=== PATIENT | male | born 1990 | race Caucasian/White ===

== ENCOUNTER 2018-12-03 13:55 | Emergency (ER) | payer MEDICAID ==
[2018-12-03] MEDS ORDERED: LORazepam 2 MG/ML VIAL IM STA (14:14)
--- NOTE | 2018-12-03 14:16 | ED Physician Documentation ---
History of Present Illness - Stated complaint Stated Complaint: HEADACHE - Chief complaint Chief Complaint: Neuro - History obtained from History obtained from: Patient - History of Present Illness Timing: Today (This is a 28-year-old gentleman with chronic anxiety, he was over an ultrasound, as his is . They turned the MRI machine on. He feels like he is always been very sensitive to magnets. He can feel magnetic galeano. While he was over there and return to the MRI on he started to feel strange with a occipital headache, bilateral upper and lower extremity tingling and heaviness and feeling like he could feel stuff in his veins. He says this also may be related to an episode of PTSD that started when he was 11 and having an MRI and they would not let him take a stuffed animal in there.) Review of Systems Constitutional: denies: Fever, Chills Cardiac: denies: Chest pain / pressure, Palpitations Respiratory: denies: Dyspnea, Cough GI: denies: Abdominal Pain, Nausea, Vomiting, Constipation, Diarrhea PD PAST MEDICAL HISTORY - Allergies Allergies/Adverse Reactions: Allergies Allergy/AdvReac Type Severity Reaction Status Date / Time No Known Drug Allergies Allergy Verified 12/03/18 14:01 PD ED PE NORMAL - Vitals Vital signs reviewed: Yes - General General: Alert and oriented X 3, No acute distress - HEENT HEENT: PERRL, EOMI, Ears normal, Pharynx benign - Neck Neck: Supple, no meningeal sign, No bony TTP - Cardiac Cardiac: RRR, No murmur - Respiratory Respiratory: No respiratory distress, Clear bilaterally - Abdomen Abdomen: Normal bowel sounds, Soft, Non tender - Back Back: No CVA TTP, No spinal TTP - Derm Derm: Normal color, Warm and dry - Extremities Extremities: No edema, No calf tenderness / cord - Neuro Neuro: Alert and oriented X 3, Normal speech Results - Vitals Vitals: Vital Signs - 24 hr 12/03/18 13:58 Temperature 36.3 C L Heart Rate 74 Respiratory 18 Rate Blood Pressure 134/100 H O2 Saturation 99 Oxygen O2 Source Room air - Rads (name of study) CT Head Radiology: EMP read contemporaneously (normal) PD MEDICAL DECISION MAKING - ED course ED course: 28-year-old gentleman with an acute headache that by history is likely due to combination of PTSD and anxiety knee was feeling better after Ativan is still quite anxious and requested imaging of his head which I discussed with him. I did not necessarily think it was indicated but he felt like he needed to have everything ruled out so he could feel better, the CT was normal. Departure - Departure Disposition: 01 Home, Self Care Clinical Impression: Anxiety, PTSD (post-traumatic stress disorder) Headache Qualifiers: Headache type: tension-type Headache chronicity pattern: acute headache Intractability: not intractable Qualified Code(s): G44.209 - Tension-type headache, unspecified, not intractable Condition: Good Record reviewed to determine appropriate education?: Yes Instructions: ED Cephalgia Unspecified Comments: Follow-up with [facility] at [phone] to schedule psychiatric care and counseling.
--- NOTE | 2018-12-03 15:46 | CT Report ---
Reason: headache Procedure Date: 12/03/2018 Accession Number: [id number] / [id number] Procedure: CT - HEAD WO CPT Code: FULL RESULT: EXAM: CT HEAD EXAM DATE: 12/03/2018 03:35 PM. CLINICAL HISTORY: 28-year-old male. 88Headache. COMPARISON: None. TECHNIQUE: Multiaxial CT images were obtained from the foramen magnum to the vertex. Reformats: Sagittal and coronal. IV contrast: None. In accordance with CT protocol optimization, one or more of the following dose reduction techniques were utilized for this exam: automated exposure control, adjustment of mA and/or KV based on patient size, or use of iterative reconstructive technique. FINDINGS: Parenchyma: No intraparenchymal hemorrhage. No evidence of mass, midline shift, or CT findings of infarction. [place]-white differentiation is distinct. Extraaxial Spaces: Normal for age. No subdural or epidural collections identified. Ventricles: Normal in size and position. Sinuses and Orbits: Imaged paranasal sinuses, orbits, and mastoids show no significant abnormality. Bones: No evidence of fracture or calvarial defect. Other: None. IMPRESSION: No CT evidence of acute intracranial abnormality, specifically no CT evidence of acute infarct, intracranial hemorrhage, mass effect, midline shift, or hydrocephalus. RADIA
[2018-12-03 15:59] VITALS: BP 129/95
== END 2018-12-03 16:03 | disposition home or self-care (01) ==
LOC: ED 13:55
DX: G44.209 Tension-type headache, unspecified, not intractable (principal); F41.9 Anxiety disorder, unspecified; F43.10 Post-traumatic stress disorder, unspecified
CPT/HCPCS: 70450; 96372; 99284; J2060

== ENCOUNTER 2019-02-01 14:58 | Outpatient (CLI) | payer MEDICAID | END 2019-02-01 14:59 | disposition critical access hospital (66) | LOC: EMS 14:58 | PROVIDERS: ATTEND Surgery | DX: R55 Syncope and collapse (principal) | CPT/HCPCS: A0425; A0429 ==

== ENCOUNTER 2019-02-01 15:17 | Emergency (ER) | payer MEDICAID ==
[2019-02-01] MEDS ORDERED: SODIUM CHLORIDE 0.9% 1,000 ML IV ONE (15:41)
--- NOTE | 2019-02-01 15:51 | ED Physician Documentation ---
PD HPI SYNCOPE - Stated complaint Stated Complaint: SYNCOPE - Chief complaint Chief Complaint: General - History obtained from History obtained from: Patient, EMS - History of Present Illness Witnessed: Witnessed Timing - onset: Today Duration: Seconds Preceding symptoms: Vision changes, Light headed Associated symptoms: Other (drooling) Injury occurred: None Similar symptoms before: Has not had sx before Recently seen: Not recently seen - Additional information Additional information: 28-year-old male with a history of anxiety and panic attacks has had a syncopal episode today. He was in an argument with his girlfriend and he was continuously yelling when he suddenly collapsed. The girlfriend acknowledges a brief syncopal and no injury and recovery without seizure. The patient recalls that he had been hitting himself in the head on the right side and has pain there with a throbbing nature. He is concerned because he has a headache and has had his fist to his head yesterday. The patient states that this morning the couple woke up late and he walked to [facility] and [facility] and still had not had anything to drink today at 3PM. Review of Systems Constitutional: denies: Fever, Chills, Myalgias Eyes: denies: Decreased vision Ears: denies: Ear pain Nose: denies: Rhinorrhea / runny nose, Congestion Throat: denies: Sore throat Cardiac: denies: Chest pain / pressure, Palpitations Respiratory: denies: Dyspnea, Cough GI: denies: Abdominal Pain, Nausea, Vomiting : denies: Dysuria, Frequency Skin: denies: Rash Musculoskeletal: reports: Extremity pain, Joint pain. denies: Neck pain, Back pain Neurologic: reports: Syncope. denies: Generalized weakness, Focal weakness, Numbness, Seizure, Confused, Altered mental status PD PAST MEDICAL HISTORY - Past Surgical History Past Surgical History: No - Allergies Allergies/Adverse Reactions: Allergies Allergy/AdvReac Type Severity Reaction Status Date / Time cucumbers Allergy Unknown Uncoded 02/01/19 15:38 - Social History Does the pt smoke?: No Smoking Status: Former smoker Does the pt have substance abuse?: No - POLST Patient has POLST: No PD ED PE NORMAL - Vitals Vital signs reviewed: Yes (hypertensive diastolic ) - General General: Alert and oriented X 3, No acute distress, Well developed/nourished - HEENT HEENT: Atraumatic, PERRL, EOMI, Ears normal, Moist mucous membranes, Pharynx benign, Dentition benign - Neck Neck: Supple, no meningeal sign, No bony TTP - Cardiac Cardiac: RRR, No murmur - Respiratory Respiratory: No respiratory distress, Clear bilaterally - Abdomen Abdomen: Soft, Non tender - Back Back: No CVA TTP, No spinal TTP - Derm Derm: Normal color, Warm and dry, No rash - Extremities Extremities: No deformity, No edema, Other (There is tenderness to the right hand over the distal 5th metacarpal. ) - Neuro Neuro: Alert and oriented X 3, pump installation and servicer 2-12 intact, No motor deficit, No sensory deficit, Normal speech Eye Opening: Spontaneous Motor: Obeys Commands Verbal: Oriented GCS Score: 15 - Psych Psych: Normal mood, Normal affect Results - Vitals Vitals: Vital Signs - 24 hr 02/01/19 15:29 Temperature 36.7 C Heart Rate 74 Respiratory 16 Rate Blood Pressure 120/92 H O2 Saturation 97 Oxygen O2 Source Room air - EKG (time done) 1525 Rate: Rate (enter#) (75) Rhythm: NSR QRS: LVH Ischemia: Non specific changes Compare to prior EKG: Old EKG unavailable Computer interpretation: Agree with computer - Labs Labs: Laboratory Tests 02/01/19 02/01/19 02/01/19 15:45 15:45 15:45 WBC 10.1 RBC 4.83 Hgb 14.4 Hct 42.5 MCV 88.0 MCH 29.8 MCHC 33.9 RDW 12.3 Plt Count 247 MPV 9.3 Neut # (Auto) 5.9 Lymph # (Auto) 2.2 [place] # (Auto) 1.0 Eos # (Auto) 0.9 H Baso # (Auto) 0.1 Absolute Nucleated RBC 0.00 Nucleated RBC % 0.0 Sodium 141 Potassium 3.8 Chloride 106 Carbon Dioxide 26 Anion Gap 9.0 BUN 15 Creatinine 0.9 Estimated GFR (MDRD) 100 Glucose 97 Calcium 9.2 Total Bilirubin 0.8 AST 25 ALT 35 Alkaline Phosphatase 62 Troponin I High Sens 4.6 Total Protein 7.1 Albumin 4.0 Globulin 3.1 Albumin/Globulin Ratio 1.3 Lipase 39 Procedures - IVC sono (time) 1545 Bedside IVC sono: IVC measures (cm) (1.05), IVC collapsed c insp (cm) (complete), Dehydration (est 1-2 liter deficit) PD MEDICAL DECISION MAKING - ED course Complexity details: reviewed old records, reviewed results, re-evaluated patient, considered differential, d/w patient, d/w family ED course: 28-year-old male with a syncopal episode while yelling continuously is found to be dehydrated on interrogation of the inferior vena cava. Is unexplained for his dehydration he has not had anything to drink this morning and since last night and he walked for a while prior to the incident. He does acknowledge a feeling of clearing his head from lightheadedness with a deep breath. Departure - Departure Disposition: 01 Home, Self Care Clinical Impression: Dehydration Condition: Stable Instructions: ED Dehydration Follow-Up: TERRY Waters [Provider Group]
[2019-02-01 15:52] LABS: BASOPHILS # (AUTO) 0.1 10^3/uL (0.0-0.1); BASOPHILS % (AUTO) 0.6 %; EOSINOPHILS # (AUTO) 0.9 10^3/uL (0.0-0.7); EOSINOPHILS % (AUTO) 8.5 %; HGB - HEMOGLOBIN 14.4 g/dL (14.0-18.0); LYMPHOCYTES # (AUTO) 2.2 10^3/uL (1.5-3.5); LYMPHOCYTES % (AUTO) 21.7 %; MEAN CORPUSCULAR HEMOGLOBIN 29.8 pg (27.0-31.0); MEAN CORPUSCULAR HGB CONC 33.9 g/dL (32.0-36.0); MEAN PLATELET VOLUME 9.3 fL (7.4-11.4); MONOCYTES % (AUTO) 10.1 %; NEUTROPHILS # (AUTO) 5.9 10^3/uL (1.5-6.6); NEUTROPHILS % (AUTO) 58.5 %; PLT - PLATELET COUNT 247 10^3/uL (130-450); RED BLOOD COUNT 4.83 10^6/uL (4.70-6.10); RED CELL DISTRIBUTION WIDTH 12.3 % (12.0-15.0); WHITE BLOOD COUNT 10.1 x10^3/uL (4.8-10.8)
[2019-02-01 16:06] LABS: ALBUMIN/GLOBULIN RATIO 1.3 (1.0-2.2); BILIRUBIN,TOTAL 0.8 mg/dL (0.2-1.0); CALCIUM 9.2 mg/dL (8.5-10.3); CREATININE 0.9 mg/dL (0.6-1.2); TOTAL PROTEIN 7.1 g/dL (6.7-8.2)
--- NOTE | 2019-02-01 16:38 | XRAY Report ---
Reason: distal 5th pain contusion Procedure Date: 02/01/2019 Accession Number: [id number] / [id number] Procedure: XR - Hand 3 View RT CPT Code: FULL RESULT: EXAM: RIGHT HAND RADIOGRAPHY EXAM DATE: 02/01/2019 03:53 PM. CLINICAL HISTORY: Distal 5th pain contusion. COMPARISON: None. TECHNIQUE: 3 views. FINDINGS: Bones: Normal. No fractures or bone lesions. Joints: Normal. No subluxations. Soft Tissues: Normal. No soft tissue swelling. IMPRESSION: No fracture RADIA
[2019-02-01 16:42] VITALS: BP 146/102
== END 2019-02-01 17:15 | disposition home or self-care (01) ==
LOC: EDUNIT# → ED 15:17
DX: E86.0 Dehydration (principal); Z87.891 Personal history of nicotine dependence
CPT/HCPCS: 36415; 80053; 83690; 84484; 85025; 93005; 96360; 99283

== ENCOUNTER 2019-05-17 10:57 | Outpatient (CLI) | payer MEDICAID | END 2019-05-17 10:58 | disposition critical access hospital (66) | LOC: EMS 10:57 | PROVIDERS: ATTEND Surgery | DX: R25.2 Cramp and spasm (principal); M54.5 Low back pain | CPT/HCPCS: A0425; A0429 ==

== ENCOUNTER 2019-05-17 11:16 | Emergency (ER) | payer MEDICAID ==
[2019-05-17] MEDS ORDERED: KETOROLAC 60 MG/2 ML VIAL IM STA (11:53)
[2019-05-17 12:43] LABS: BILIRUBIN,URINE NEGATIVE (NEGATIVE); GLUCOSE, URINE (UA) NEGATIVE (NEGATIVE); KETONES,URINE (UA) NEGATIVE (NEGATIVE); LEUKOCYTE ESTERASE, URINE NEGATIVE (NEGATIVE); NITRITE,URINE NEGATIVE (NEGATIVE); OCCULT BLOOD,URINE NEGATIVE (NEGATIVE); PH,URINE 8.5 PH (5.0-7.5); PROTEIN,URINE NEGATIVE (NEGATIVE); UROBILINOGEN,URINE 0.2 (NORMAL) E.U./dL (NORMAL)
[2019-05-17 12:55] LABS: CLARITY,URINE CLEAR (CLEAR)
--- NOTE | 2019-05-17 13:38 | ED Physician Documentation ---
PD HPI BACK PAIN - Stated complaint Stated Complaint: Back Px - Chief complaint Chief Complaint: Back Pain - History obtained from History obtained from: Patient - History of Present Illness Timing - onset: Today (Just prior to arrival) Timing - details: Abrupt onset Pain level max: 10 Pain level now: 5 Location: Mid Quality: Pain, Spasm Associated symptoms: No: Weakness, Numbness, Incontinent of urine, Incontinent of stool Worsened by: Movement Recently seen: Not recently seen - Additional information Additional information: This is a 29-year-old man who presents by ambulance with complaints that he sat down on the toilet to defecate. He always has a slow defecation and had been sitting there passing his stools when he suddenly developed a spasm in his mid back about an hour prior to presentation. It just abruptly went up from his "average" chronic back pain to 10 out of 10. He thinks he then started to have a panic attack he had to have his help him stand up from the toilet and they called 911. He vomited 5-6 times he thinks because of the pain. He did not have any pain radiating down his legs. He now feels just very fatigued but his pain is down to a 5 out of 10. He says this past week he was at the [facility] office and had sat down in there were rocking chair with their 1-month-old infant. When they were ready to go he could not stand up so they had to call security to help him get up out of the rocking chair. He denies any abdominal pain. He did not take any medications at home for this pain today. He reports that he has been out of his cannabis for the past 3 days and is just been scraping up what he can to smoke. No dysuria no hematuria. He has had no prior significant back injury and no surgery. Review of Systems Constitutional: denies: Fever GI: reports: Constipation. denies: Abdominal Pain, Nausea, Vomiting, Diarrhea : denies: Dysuria, Unable to Void, Hematuria Musculoskeletal: reports: Other (He has chronic pain "all over his body".) Neurologic: denies: Generalized weakness, Focal weakness, Numbness, Syncope PD PAST MEDICAL HISTORY - Past Medical History Psych: ADD/ADHD Musculoskeletal: Chronic back pain - Past Surgical History Past Surgical History: No - Allergies Allergies/Adverse Reactions: Allergies Allergy/AdvReac Type Severity Reaction Status Date / Time cucumbers Allergy Unknown Uncoded 02/01/19 15:38 - Social History Does the pt smoke?: No Smoking Status: Never smoker Does the pt drink ETOH?: Yes ETOH Use: Liquor Does the pt have substance abuse?: No Substance Use and Type: Marijuana - POLST Patient has POLST: No PD ED PE NORMAL - Vitals Vital signs reviewed: Yes - General General: Alert and oriented X 3, No acute distress, Well developed/nourished - HEENT HEENT: Atraumatic, PERRL, Moist mucous membranes - Cardiac Cardiac: RRR, No murmur - Respiratory Respiratory: No respiratory distress - Abdomen Abdomen: Normal bowel sounds, Soft, Non tender, No organomegaly - Back Back: No CVA TTP, Other (He is calling out in pain with palpation anywhere down the midline of the spine and in the paraspinal muscles. There is no bruising or swelling.) - Derm Derm: Normal color, Warm and dry, No rash - Neuro Neuro: Alert and oriented X 3, complaint inspector 2-12 intact, No motor deficit, No sensory d eficit, Normal speech, Other (Reflexes 2+ and symmetrical at the quadriceps.) - Psych Psych: Normal mood, Normal affect Results - Vitals Vitals: Vital Signs - 24 hr 05/17/19 05/17/19 05/17/19 11:19 11:27 13:40 Temperature 36.5 C 36.7 C 36.6 C Heart Rate 76 76 74 Respiratory 18 18 14 Rate Blood Pressure 141/99 H 141/99 H 136/90 H O2 Saturation 97 99 100 Oxygen O2 Source Room air - Labs Labs: Laboratory Tests 05/17/19 12:30 Urine Color YELLOW Urine Clarity CLEAR Urine pH 8.5 H Ur Specific [place] 1.020 Urine Protein NEGATIVE Urine Glucose (UA) NEGATIVE Urine Ketones NEGATIVE Urine Occult Blood NEGATIVE Urine Nitrite NEGATIVE Urine Bilirubin NEGATIVE Urine Urobilinogen 0.2 (NORMAL) Ur Leukocyte Esterase NEGATIVE Ur Microscopic Review NOT INDICATED Urine Culture Comments NOT INDICATED PD MEDICAL DECISION MAKING - ED course Complexity details: reviewed results, d/w patient ED course: Urinalysis was negative for any blood to suggest kidney stone. Patient feels better after the Toradol injection back to his "baseline". He is discharged home for outpatient management. Departure - Departure Disposition: 01 Home, Self Care Clinical Impression: Back pain Condition: Good Instructions: ED Back Care Tips, ED Exercises Lumbar Muscles, ED Spasm Back No Trauma Follow-Up: [facility] [Provider Group] Comments: Back stretching exercises can be beneficial in some of those have been printed for you. May take ibuprofen [id number]. Ice your back and be careful with lifting the baby, twisting or stooping. Follow-up with primary care provider if you have persistent pain. Discharge Date/Time: 05/17/19 13:40
[2019-05-17 13:41] VITALS: BP 136/90
== END 2019-05-17 13:40 | disposition home or self-care (01) ==
LOC: EDUNIT# → ED 11:16
DX: M54.9 Dorsalgia, unspecified (principal)
CPT/HCPCS: 81001; 81003; 87086; 96372; 99283; 99284

== ENCOUNTER 2019-05-27 09:09 | Emergency (ER) | payer MEDICAID ==
--- NOTE | 2019-05-27 10:33 | ED Physician Documentation ---
PD HPI CHEST PAIN - Stated complaint Stated Complaint: CHEST PX/HEADACHE - Chief complaint Chief Complaint: General - History obtained from History obtained from: Patient - History of Present Illness Timing - onset: Enter time (839), Today Timing - onset during: Emotional event Timing - duration: Minutes Timing - details: Abrupt onset, Still present Quality: Sharp, Pain Location: Right chest Radiation: Jaw Improved by: Rest Associated symptoms: No: Shortness of air, Diaphoresis, Nausea, Vomiting, Feeling faint / dizzy, General Weakness, Palpitations, Cough Similar symptoms before: Diagnosis (anxiety) Recently seen: Emergency Dept - Additional information Additional information: 29-year-old male with a prior history of anxiety has developed acute chest pain while he was awaiting a court hearing today. This happened in the court house and he was unable to attend his court hearing. He states the stress associated with this court hearing is tremendous. He has a son that is now in foster care. He states that his 's mother called CPS. The patient's is at the bedside and she indicates that the level of stress is high and she denies any abuse to herself. The patient has developed pain in the right side of his chest and some pain into his right jaw. He did not get short of breath or diaphoretic he did get some tingling to his fingertips. He continues to have some pain in the right anterior chest. He has not been sick recently. He did have some vomiting last night that he associates with stress. He is recently been into the emergency department with back spasm. Review of Systems Constitutional: denies: Fever Eyes: denies: Decreased vision Ears: denies: Ear pain Nose: denies: Rhinorrhea / runny nose, Congestion Throat: denies: Sore throat Cardiac: reports: Chest pain / pressure. denies: Palpitations, Pedal edema, Calf pain Respiratory: denies: Dyspnea, Cough GI: reports: Nausea, Vomiting. denies: Abdominal Pain : denies: Dysuria, Frequency Skin: denies: Rash, Lesions Musculoskeletal: reports: Back pain. denies: Neck pain Neurologic: denies: Generalized weakness, Focal weakness, Numbness PD PAST MEDICAL HISTORY - Past Medical History Psych: Anxiety, ADD/ADHD Musculoskeletal: Chronic back pain - Past Surgical History Past Surgical History: No - Present Medications Home Medications: Ambulatory Orders Medication Instructions Recorded Confirmed hydrOXYzine pamoate [Hydroxyzine 25 mg PO Q6HR PRN #20 capsule 05/27/19 Pamoate] - Allergies Allergies/Adverse Reactions: Allergies Allergy/AdvReac Type Severity Reaction Status Date / Time cucumbers Allergy Unknown Uncoded 02/01/19 15:38 pickles Allergy Unknown Uncoded 05/27/19 09:19 - Social History Does the pt smoke?: No Smoking Status: Never smoker Does the pt drink ETOH?: Yes Does the pt have substance abuse?: No - POLST Patient has POLST: No PD ED PE NORMAL - Vitals Vital signs reviewed: Yes (hypertensive ) - General General: No acute distress, Well developed/nourished - HEENT HEENT: Atraumatic, PERRL, EOMI - Neck Neck: Supple, no meningeal sign, No bony TTP - Cardiac Cardiac: RRR, No murmur - Respiratory Respiratory: No respiratory distress, Clear bilaterally - Abdomen Abdomen: Normal bowel sounds, Soft, Non tender, Non distended, No organomegaly - Back Back: No CVA TTP, No spinal TTP - Derm Derm: Normal color, Warm and dry, No rash - Extremities Extremities: No deformity, No edema, No calf tenderness / cord - Neuro Neuro: Alert and oriented X 3, licensed loan officer 2-12 intact, No motor deficit, No sensory deficit, Normal speech Eye Opening: Spontaneous Motor: Obeys Commands Verbal: Oriented GCS Score: 15 - Psych Psych: Normal mood, Normal affect Results - Vitals Vitals: Vital Signs - 24 hr 05/27/19 09:15 Temperature 36.4 C L Heart Rate 99 Respiratory 17 Rate Blood Pressure 122/100 H O2 Saturation 97 Oxygen O2 Source Room air - EKG (time done) 1105 Rate: Rate (enter#) (83) Rhythm: NSR QRS: LVH Ischemia: Non specific changes Compare to prior EKG: Unchanged from prior EKG (SPT 02-01-2019 no chagnes ) Computer interpretation: Agree with computer - Labs Labs: Laboratory Tests 05/27/19 05/27/19 05/27/19 10:38 10:38 10:38 WBC 10.1 RBC 5.01 Hgb 14.4 Hct 43.3 MCV 86.4 MCH 28.7 MCHC 33.3 RDW 12.9 Plt Count 308 MPV 9.5 Neut # (Auto) 6.1 Lymph # (Auto) 2.4 [place] # (Auto) 0.8 Eos # (Auto) 0.7 Baso # (Auto) 0.1 Absolute Nucleated RBC 0.00 Nucleated RBC % 0.0 Sodium 140 Potassium 4.0 Chloride 105 Carbon Dioxide 26 Anion Gap 9.0 BUN 12 Creatinine 1.0 Estimated GFR (MDRD) 88 L Glucose 104 H Calcium 9.3 Total Bilirubin 0.7 AST 38 ALT 60 Alkaline Phosphatase 70 Troponin I High Sens 5.1 Total Protein 7.3 Albumin 3.9 Globulin 3.4 Albumin/Globulin Ratio 1.1 Lipase 35 - Rads (name of study) chest Radiology: Prelim report reviewed (Impression normal two-view chest radiography.), EMP read indepedently, See rad report PD MEDICAL DECISION MAKING - ED course Complexity details: reviewed old records, reviewed results, re-evaluated patient, considered differential, d/w patient, d/w family ED course: 29-year-old male with a history of panic attacks has developed some chest pain while he was in court today and appears to have had a panic attack. His work-up for cardiac causes of chest pain is negative. He Departure - Departure Disposition: 01 Home, Self Care Clinical Impression: PTSD (post-traumatic stress disorder) Condition: Stable Instructions: ED Stress React Follow-Up: Hayde White PA [Primary Care Provider] - Prescriptions: hydrOXYzine pamoate [Hydroxyzine Pamoate] 25 mg PO Q6HR PRN #20 capsule PRN Reason: Anxiety
[2019-05-27 10:45] LABS: BASOPHILS # (AUTO) 0.1 10^3/uL (0.0-0.1); BASOPHILS % (AUTO) 0.7 %; EOSINOPHILS # (AUTO) 0.7 10^3/uL (0.0-0.7); HGB - HEMOGLOBIN 14.4 g/dL (14.0-18.0); LYMPHOCYTES # (AUTO) 2.4 10^3/uL (1.5-3.5); LYMPHOCYTES % (AUTO) 24.1 %; MEAN CORPUSCULAR HEMOGLOBIN 28.7 pg (27.0-31.0); MEAN CORPUSCULAR HGB CONC 33.3 g/dL (32.0-36.0); MEAN CORPUSCULAR VOLUME 86.4 fL (80.0-94.0); MEAN PLATELET VOLUME 9.5 fL (7.4-11.4); MONOCYTES # (AUTO) 0.8 10^3/uL (0.0-1.0); MONOCYTES % (AUTO) 7.7 %; NEUTROPHILS # (AUTO) 6.1 10^3/uL (1.5-6.6); NEUTROPHILS % (AUTO) 59.9 %; PLT - PLATELET COUNT 308 10^3/uL (130-450); RED BLOOD COUNT 5.01 10^6/uL (4.70-6.10); RED CELL DISTRIBUTION WIDTH 12.9 % (12.0-15.0); WHITE BLOOD COUNT 10.1 x10^3/uL (4.8-10.8)
[2019-05-27 10:57] LABS: ALBUMIN 3.9 g/dL (3.2-5.5); ALBUMIN/GLOBULIN RATIO 1.1 (1.0-2.2); BILIRUBIN,TOTAL 0.7 mg/dL (0.2-1.0); CALCIUM 9.3 mg/dL (8.5-10.3); TOTAL PROTEIN 7.3 g/dL (6.7-8.2)
--- NOTE | 2019-05-27 11:16 | XRAY Report ---
Reason: chest pain Procedure Date: 05/27/2019 Accession Number: [id number] / [id number] Procedure: XR - Chest 2 View X-Ray CPT Code: 73789 Final Report FULL RESULT: EXAM: CHEST RADIOGRAPHY EXAM DATE: 05/27/2019 10:50 AM. CLINICAL HISTORY: Chest pain. COMPARISON: None. TECHNIQUE: 2 views. FINDINGS: Lungs/Pleura: No focal opacities evident. No pleural effusion. No pneumothorax. Normal volumes. Mediastinum: Heart and mediastinal contours are unremarkable. Other: None. IMPRESSION: Normal 2-view chest radiography. RADIA
[2019-05-27 11:38] VITALS: BP 122/65
== END 2019-05-27 11:41 | disposition home or self-care (01) ==
LOC: ED 09:09
DX: F43.10 Post-traumatic stress disorder, unspecified (principal)
CPT/HCPCS: 36415; 71046; 80053; 83690; 84484; 85025; 93005; 99284

== ENCOUNTER 2019-06-25 10:42 | Emergency (ER) | payer MEDICAID ==
--- NOTE | 2019-06-25 11:17 | ED Physician Documentation ---
History of Present Illness - Stated complaint Stated Complaint: DIZZINESS - Chief complaint Chief Complaint: Neuro - History obtained from History obtained from: Patient (29-year-old male presents this morning with a chief complaint of lightheadedness dizziness. He states that he awoke immediately realized that he had missed an appointment anyhow this morning, also got into his car started driving to [place]. On the way here he states that he felt kind of in a fog. He did not eat breakfast, nor drink any juice or liquids this morning. He does admit to having past medical history of anxiety, panic attacks, PTSD.he has been treated with "hydroxy Shelly". He also states that he will not take this medication anymore as it "knocks me out". Presently the patient denies any lightheadedness dizziness, chest pain, shortness of breath, headache, double vision/blurred vision, Fevers, chills, nausea, vomiting, sore throat. He thinks that this symptoms he had this morning were directly related to him missing his appointment.) Review of Systems Constitutional: reports: Reviewed and negative. denies: Fever, Chills Eyes: reports: Reviewed and negative. denies: Loss of vision, Decreased vision, Photophobia Ears: denies: Ear pain, Tinnitus/ringing Nose: denies: Rhinorrhea / runny nose, Congestion, Sinus pressure / pain Throat: denies: Dental pain / toothache, Sore throat, Swollen tonsils Cardiac: reports: Reviewed and negative. denies: Chest pain / pressure, Pal pitations Respiratory: denies: Dyspnea, Cough, Wheezing GI: reports: Bloody / black stool. denies: Nausea, Vomiting, Diarrhea : denies: Dysuria Skin: reports: Reviewed and negative Musculoskeletal: reports: Reviewed and negative PD PAST MEDICAL HISTORY - Past Medical History Past Medical History: Yes Psych: Anxiety, ADD/ADHD, Post traumatic stress disorder Musculoskeletal: Chronic back pain - Past Surgical History Past Surgical History: No - Present Medications Home Medications: Ambulatory Orders Medication Instructions Recorded Confirmed hydrOXYzine pamoate [Hydroxyzine 25 mg PO Q6HR PRN #20 capsule 05/27/19 Pamoate] - Allergies Allergies/Adverse Reactions: Allergies Allergy/AdvReac Type Severity Reaction Status Date / Time cucumbers Allergy Unknown Uncoded 06/25/19 10:53 pickles Allergy Unknown Uncoded 06/25/19 10:53 - Social History Does the pt smoke?: Yes Smoking Status: Current every day smoker Does the pt drink ETOH?: Yes Does the pt have substance abuse?: Yes Substance Use and Type: Marijuana - POLST Patient has POLST: No PD ED PE NORMAL - General General: Alert and oriented X 3, No acute distress, Well developed/nourished - HEENT HEENT: Atraumatic, PERRL, EOMI, Ears normal, Moist mucous membranes, Pharynx benign - Neck Neck: Supple, no meningeal sign, No adenopathy - Cardiac Cardiac: RRR, No murmur - Respiratory Respiratory: No respiratory distress, Clear bilaterally - Abdomen Abdomen: Normal bowel sounds, Soft, Non tender, Non distended - Back Back: No CVA TTP - Derm Derm: Normal color, Warm and dry, No rash - Extremities Extremities: No edema Results - Vitals Vitals: Vital Signs - 24 hr 06/25/19 10:46 Temperature 36.7 C Heart Rate 75 Respiratory 18 Rate Blood Pressure 130/94 H O2 Saturation 97 Oxygen O2 Source Room air - EKG (time done) No standard instances Rhythm: NSR [place]: Normal Intervals: Normal CT QRS: Normal Computer interpretation: Agree with computer - Rads (name of study) No standard instances Radiology: Final report received (Final impression: No radiographic evidence of acute cardiopulmonary process.) PD MEDICAL DECISION MAKING - ED course Complexity details: reviewed results, re-evaluated patient, considered differential (Influenza, strep throat, anxiety/panic.), d/w patient Departure - Departure Clinical Impression: Anxiety Condition: Good Instructions: ED Panic Attack Comments: Your EKG and chest x-ray today were normal. This is most likely anxiety related to waking up late and missing appointments morning. You might want to consider taking your antianxiety medications which you have. Also as we discussed with the Covid-19, if you get developed flulike symptoms of fever, cough headache, then he can return to be tested for that.
--- NOTE | 2019-06-25 11:35 | XRAY Report ---
Reason: cough Procedure Date: 06/25/2019 Accession Number: [id number] / [id number] Procedure: XR - Chest 2 View X-Ray CPT Code: 73792 Final Report FULL RESULT: EXAM: CHEST RADIOGRAPHY EXAM DATE: 06/25/2019 11:27 AM. CLINICAL HISTORY: Cough. Lightheaded while driving. COMPARISON: CHEST 2 VIEW 05/27/2019 10:39 AM. TECHNIQUE: 2 views. FINDINGS: Lungs/Pleura: No focal opacities evident. No pleural effusion. No pneumothorax. Normal volumes. Mediastinum: Heart and mediastinal contours are unremarkable. Other: None. IMPRESSION: No radiographic evidence of acute cardiopulmonary process. RADIA
[2019-06-25 12:25] VITALS: BP 132/90
== END 2019-06-25 12:26 | disposition home or self-care (01) ==
LOC: ED 10:42
DX: F41.9 Anxiety disorder, unspecified (principal); F17.210 Nicotine dependence, cigarettes, uncomplicated
CPT/HCPCS: 71046; 93005; 99283; 99284

== ENCOUNTER 2019-12-14 14:00 | Outpatient (CLI) | payer MEDICAID | END 2019-12-14 14:01 | disposition EMS.NT | LOC: EMS 14:00 | PROVIDERS: ATTEND Surgery | DX: R45.89 Other symptoms and signs involving emotional state (principal) ==

== ENCOUNTER 2020-04-07 12:17 | Emergency (ER) | payer MEDICAID ==
--- NOTE | 2020-04-07 13:23 | XRAY Report ---
PROCEDURE: Ankle 3 View RT INDICATIONS: pain/injury TECHNIQUE: 3 views of the ankle were acquired. COMPARISON: None FINDINGS: Bones: No fractures or dislocations. Ankle mortise is normally aligned. No suspicious bony lesions . Well-corticated osseous bodies posterior to the subtalar joint are new compared to the prior x-ray in 2011. No erosions or proliferative changes. Soft tissues: No tibiotalar joint effusion. Achilles tendon appears normal. IMPRESSION: 1. No acute abnormality. 2. No evidence of inflammatory arthropathy. 3. Well-corticated osseous bodies posterior to the subtalar joint are new compared to prior x-ray in 2011 and are of uncertain significance. If the patient has ongoing pain consider MRI. Reviewed by: Shay Moctezuma on 04/07/2020 1:21 PM [facility] Approved by: Shay Moctezuma on 04/07/2020 1:21 PM [facility] Station ID: [id number]
[2020-04-07] MEDS ORDERED: IBUPROFEN 800 MG TABLET PO STA (13:39)
[2020-04-07] MEDS ORDERED: CHERRY SYRUP 10 ML UDC PO ONE (13:39)
[2020-04-07] MEDS ORDERED: DEXAMETHASONE 10 MG/ML VIAL PO STA (13:39)
--- NOTE | 2020-04-07 13:40 | ED Physician Documentation ---
History of Present Illness - Stated complaint Stated Complaint: PX RT ANKLE - Chief complaint Chief Complaint: Ext Problem - History obtained from History obtained from: Patient - History of Present Illness Timing: How many days ago (2) Pain level max: 6 Pain level now: 3 - Additonal information Additional information: 30-year-old male presents to the emergency department stating that he has right ankle pain. Unclear etiology. Has had several old injuries to this ankle. Does not recall any new injuries. Worse with movement and walking. Better with rest. Review of Systems Constitutional: denies: Fever, Chills Nose: denies: Rhinorrhea / runny nose, Congestion Throat: denies: Sore throat GI: denies: Abdominal Pain, Nausea, Vomiting, Diarrhea Skin: denies: Rash Musculoskeletal: denies: Neck pain, Back pain Neurologic: denies: Headache PD PAST MEDICAL HISTORY - Past Medical History Cardiovascular: None Respiratory: None Neuro: None Endocrine/Autoimmune: None GI: None : None HEENT: None Psych: Anxiety, ADD/ADHD, Post traumatic stress disorder Musculoskeletal: Chronic back pain Derm: Eczema - Past Surgical History Past Surgical History: No - Present Medications Home Medications: Ambulatory Orders Medication Instructions Recorded Confirmed Ibuprofen [Motrin] 800 mg PO Q8H PRN #30 tablet 04/07/20 - Allergies Allergies/Adverse Reactions: Allergies Allergy/AdvReac Type Severity Reaction Status Date / Time cucumbers Allergy Unknown Uncoded 04/07/20 12:29 pickles Allergy Unknown Uncoded 04/07/20 12:29 - Social History Does the pt smoke?: Yes Smoking Status: Current every day smoker Does the pt drink ETOH?: Yes Does the pt have substance abuse?: Yes Substance Use and Type: Marijuana - Immunizations Immunizations are current?: No - POLST Patient has POLST: No PD ED PE NORMAL - Vitals Vital signs reviewed: Yes - General General: Alert and oriented X 3, No acute distress, Well developed/nourished - HEENT HEENT: Moist mucous membranes - Neck Neck: Supple, no meningeal sign - Derm Derm: Warm and dry - Extremities Extremities: Other (No tenderness to palpation about the right ankle. There is minimal swelling. He does have pain with plantar and dorsiflexion of the foot. This is in the anterior and posterior aspect of the ankle. Neurovascularly intact. Otherwise normal exam) - Neuro Neuro: Alert and oriented X 3 - Psych Psych: Normal mood, Normal affect Results - Vitals Vitals: Vital Signs - 24 hr 04/07/20 12:24 Temperature 37.2 C Heart Rate 82 Respiratory 16 Rate Blood Pressure 126/91 H O2 Saturation 99 Oxygen O2 Source Room air - Rads (name of study) Right ankle x-ray Radiology: Prelim report reviewed, EMP read contemporaneously, See rad report PD MEDICAL DECISION MAKING - ED course Complexity details: reviewed results, re-evaluated patient, considered differential (No trauma. Not septic joint.), d/w patient ED course: 30-year-old male with right ankle pain. Unclear etiology. No acute findings on x-ray. No acute abnormalities on exam other than mild swelling. We will trial him on anti-inflammatories and an Tung wrap for compression. Ambulating well. Patient counseled regarding signs and symptoms for which I believe and urgent re-evaluation would be necessary. Patient with good understanding of and agreement to plan and is comfortable going home at this time This document was made in part using voice recognition software. While efforts are made to proofread this document, sound alike and grammatical errors may occur. IMPRESSION: 1. No acute abnormality. 2. No evidence of inflammatory arthropathy. 3. Well-corticated osseous bodies posterior to the subtalar joint are new compared to prior x-ray in 2010 and are of uncertain significance. If the patient has ongoing pain consider MRI. Departure - Departure Disposition: 01 Home, Self Care Clinical Impression: Right ankle pain Qualifiers: Chronicity: acute Qualified Code(s): M25.571 - Pain in right ankle and joints of right foot Condition: Good Instructions: ED Joint Pain Follow-Up: your,doctor in 1 week [Other] Prescriptions: Ibuprofen [Motrin] 800 mg PO Q8H PRN #30 tablet PRN Reason: PAIN &/OR FEVER Comments: Your x-ray does not show any acute abnormalities today. Follow-up with your doctor as needed for further care. An Tung wrap has been applied, a steroid with given an anti-inflammatory as prescribed. Continue to gently range your ankle. If you are having continued pain, you should follow-up with your doctor for repeat evaluation.
[2020-04-07 13:50] VITALS: BP 125/86
== END 2020-04-07 13:57 | disposition home or self-care (01) ==
LOC: ED 12:17
DX: M25.571 Pain in right ankle and joints of right foot (principal); F17.200 Nicotine dependence, unspecified, uncomplicated
CPT/HCPCS: 73610; 99283; 99284; A9270

== ENCOUNTER 2020-07-14 10:54 | Emergency (ER) | payer MEDICAID ==
--- NOTE | 2020-07-14 11:07 | ED Physician Documentation ---
PD HPI DYSPNEA - Stated complaint Stated Complaint: CHEST PX, SOB - Chief complaint Chief Complaint: Cardiac - History obtained from History obtained from: Patient - History of Present Illness Timing - onset: How many days ago (2 days of having some nausea and feeling of pain in chest. History of regular cannibis use and was in custodial for 2 1/2 days and without cannibis. Just released today. He states he was very anxious in custodial, as is claustrophobic, and had nausea, couple episodes emesis over the 2 days. chest pain today.) Timing - onset during: Other (onset after nausea and with near emesis and episode of emesis.) Timing - details: Gradual onset, Waxing and waning Inciting event(s): No: Out of meds (had not had ability to use his usual cannibis while in custodial.), URI Improved by: Sitting up Worsened by: Laying flat Associated symptoms: Chest pain / discomfort. No: Fever, Cough, Wheezing, Palpitations, Bilateral edema Similar symptoms before: Has not had sx before Recently seen: Not recently seen Review of Systems Constitutional: reports: Fatigue. denies: Fever, Chills, Myalgias Nose: denies: Rhinorrhea / runny nose, Congestion Throat: denies: Sore throat Cardiac: reports: Chest pain / pressure. denies: Palpitations, Pedal edema, Calf pain Respiratory: denies: Dyspnea, Cough, Wheezing GI: reports: Nausea, Vomiting (couple times in the past 2 days.). denies: Abdominal Pain Skin: denies: Rash, Lesions PD PAST MEDICAL HISTORY - Past Medical History Cardiovascular: None Respiratory: None Neuro: None Endocrine/Autoimmune: None GI: None : None HEENT: None Psych: Anxiety, ADD/ADHD, Post traumatic stress disorder Musculoskeletal: Chronic back pain Derm: Eczema - Past Surgical History Past Surgical History: No - Present Medications Home Medications: Ambulatory Orders Medication Instructions Recorded Confirmed No Known Home Medications 07/14/20 07/14/20 - Allergies Allergies/Adverse Reactions: Allergies Allergy/AdvReac Type Severity Reaction Status Date / Time cucumbers Allergy Unknown Uncoded 07/14/20 11:04 pickles Allergy Unknown Uncoded 07/14/20 11:04 - Social History Does the pt smoke?: Yes Smoking Status: Current every day smoker Does the pt drink ETOH?: Yes Does the pt have substance abuse?: Yes - Immunizations Immunizations are current?: No - POLST Patient has POLST: No PD ED PE NORMAL - Vitals Vital signs reviewed: Yes - General General: Alert and oriented X 3, No acute distress, Well developed/nourished - HEENT HEENT: Pharynx benign - Neck Neck: Supple, no meningeal sign, No adenopathy - Cardiac Cardiac: RRR, No murmur - Respiratory Respiratory: Clear bilaterally, Other (minimal chestwall tenderness left sternal border. ) - Abdomen Abdomen: Normal bowel sounds, Soft, Non distended, No organomegaly, Other (mild epigastric tenderness. ) - Derm Derm: Normal color, Warm and dry - Extremities Extremities: No tenderness to palpate, Normal ROM s pain, No edema, No calf tenderness / cord - Neuro Neuro: Alert and oriented X 3, No motor deficit, Normal speech Results - Vitals Vitals: Vital Signs - 24 hr 07/14/20 07/14/20 07/14/20 11:00 11:04 11:05 Temperature 36.9 C Heart Rate 105 H 94 93 Respiratory 22 20 18 Rate Blood Pressure 153/114 H 142/103 H 142/103 H O2 Saturation 97 98 100 07/14/20 12:20 Temperature 36.8 C Heart Rate 103 H Respiratory 20 Rate Blood Pressure 133/103 H O2 Saturation 98 Oxygen O2 Source Room air - EKG (time done) 10:57 Rhythm: NSR [place]: Normal Intervals: Normal [place] QRS: Normal Ischemia: Normal ST segments. No: ST elevation c/w ischemia, ST depression - Labs Labs: Laboratory Tests 07/14/20 07/14/20 07/14/20 11:04 11:04 11:24 WBC 14.6 H RBC 5.44 Hgb 16.5 Hct 48.7 MCV 89.5 MCH 30.3 MCHC 33.9 RDW 12.9 Plt Count 367 MPV 9.9 Neut # (Auto) 10.2 H Lymph # (Auto) 2.5 Humphreys # (Auto) 1.1 H Eos # (Auto) 0.6 Baso # (Auto) 0.1 Absolute Nucleated RBC 0.00 Nucleated RBC % 0.0 Sodium 140 Potassium 3.6 Chloride 102 Carbon Dioxide 27 Anion Gap 11.0 BUN 14 Creatinine 1.3 H Estimated GFR (MDRD) 64 L Glucose 113 H Calcium 10.2 Total Bilirubin 0.7 AST 28 ALT 42 Alkaline Phosphatase 68 Troponin I High Sens 12.4 Total Protein 8.4 H Albumin 4.6 Globulin 3.8 Albumin/Globulin Ratio 1.2 Lipase 31 - Rads (name of study) chest xray Radiology: Prelim report reviewed (no acute process), See rad report PD MEDICAL DECISION MAKING - ED course Complexity details: re-evaluated patient (improved qutie a bit with GI cocktail. He declined med for anxiety. ), considered differential (anxiety related to recent custodial and claustrophobia, and also lack of his usual cannibis. Consider cardiac process, but no history of cocaine/meth use. Can check trop. CXR to eval for lung process. Can try GI cocktail. ), d/w patient Departure - Departure Disposition: 01 Home, Self Care Clinical Impression: Esophagitis Chest pain Qualifiers: Chest pain type: unspecified Qualified Code(s): R07.9 - Chest pain, unspecified Condition: Stable Record reviewed to determine appropriate education?: Yes Instructions: ED GERD Follow-Up: Hayde White PA [Primary Care Provider] - Comments: Your EKG, chest x-ray, blood tests are normal. No signs of heart attack nor significant cause for your chest pain. It it appears likely to be an esophageal irritation from stomach acids in the vomiting. You can use antacid such as Maalox or Mylanta or Tums. Consider an acid reducing medicine such as famotidine/Pepcid daily for a week or so. Recheck if not resolved over the next several days. Discharge Date/Time: 07/14/20 12:21
--- OUTSIDE RECORDS SUMMARY | 2020-07-14 11:11 | EXTERNAL MEDICAL SUMMARY RPT | Continuity of Care Document ---
:1990 Demographics Phone Unavailable Preferred Language Unknown Marital Status Unknown Presybeterian Affiliation Unknown Race Unknown Ethnic Group Unknown Author Organization [facility] Address [address] [place] [address] Phone Social History date description facility [id number]
[2020-07-14] MEDS ORDERED: MAG HYDROX/AL HYDROX/SIMETH 30 ML UDC PO STA (11:24)
[2020-07-14 11:29] LABS: BASOPHILS # (AUTO) 0.1 10^3/uL (0.0-0.1); BASOPHILS % (AUTO) 0.6 %; EOSINOPHILS # (AUTO) 0.6 10^3/uL (0.0-0.7); EOSINOPHILS % (AUTO) 4.4 %; HCT - HEMATOCRIT 48.7 % (42.0-52.0); HGB - HEMOGLOBIN 16.5 g/dL (14.0-18.0); LYMPHOCYTES # (AUTO) 2.5 10^3/uL (1.5-3.5); LYMPHOCYTES % (AUTO) 16.8 %; MEAN CORPUSCULAR HEMOGLOBIN 30.3 pg (27.0-31.0); MEAN CORPUSCULAR HGB CONC 33.9 g/dL (32.0-36.0); MEAN CORPUSCULAR VOLUME 89.5 fL (80.0-94.0); MEAN PLATELET VOLUME 9.9 fL (7.4-11.4); MONOCYTES # (AUTO) 1.1 10^3/uL (0.0-1.0); MONOCYTES % (AUTO) 7.8 %; NEUTROPHILS # (AUTO) 10.2 10^3/uL (1.5-6.6); NEUTROPHILS % (AUTO) 69.8 %; PLT - PLATELET COUNT 367 10^3/uL (130-450); RED BLOOD COUNT 5.44 10^6/uL (4.70-6.10); RED CELL DISTRIBUTION WIDTH 12.9 % (12.0-15.0); WHITE BLOOD COUNT 14.6 x10^3/uL (4.8-10.8)
--- NOTE | 2020-07-14 11:45 | XRAY Report ---
PROCEDURE: Chest 1 View X-Ray INDICATIONS: Chest Pain TECHNIQUE: One view of the chest was acquired. COMPARISON: 06/25/2019 FINDINGS: Surgical changes and devices: None. Lungs and pleura: No pleural effusions or pneumothorax. Lungs are clear. Mediastinum: Mediastinal contours appear normal. Heart size is normal. Bones and chest wall: No suspicious bony lesions. Overlying soft tissues appear unremarkable. IMPRESSION: No acute cardiopulmonary pathology. Reviewed by: Arnaud Oden MD on 07/14/2020 11:43 AM PDT Approved by: Arnaud Oden MD on 07/14/2020 11:43 AM PDT Station ID: [id number]
[2020-07-14 11:51] LABS: ALBUMIN 4.6 g/dL (3.2-5.5); ALBUMIN/GLOBULIN RATIO 1.2 (1.0-2.2); BILIRUBIN,TOTAL 0.7 mg/dL (0.2-1.0); CALCIUM 10.2 mg/dL (8.5-10.3); CREATININE 1.3 mg/dL (0.6-1.2); POTASSIUM 3.6 mmol/L (3.5-5.0); TOTAL PROTEIN 8.4 g/dL (6.7-8.2)
[2020-07-14 12:21] VITALS: BP 133/103
== END 2020-07-14 12:21 | disposition home or self-care (01) ==
LOC: ED 10:54
DX: K20.90 Esophagitis, unspecified without bleeding (principal); R07.89 Other chest pain; F17.200 Nicotine dependence, unspecified, uncomplicated
CPT/HCPCS: 36415; 71045; 80053; 83690; 84484; 85025; 93005; 99284; A9270

== ENCOUNTER 2020-11-03 11:47 | Emergency (ER) | payer MEDICAID | END 2020-11-03 12:56 | disposition left against medical advice (07) | LOC: ED 11:47 | DX: Z53.21 Procedure and treatment not carried out due to patient leaving prior to being seen by health care provider (principal) ==

== ENCOUNTER 2021-03-06 11:32 | Emergency (ER) | payer MEDICAID ==
[2021-03-06] MEDS ORDERED: CLINDAMYCIN 150 MG CAPSULE PO STA (13:46)
--- NOTE | 2021-03-06 13:48 | ED Physician Documentation ---
PD HPI WOUND RECHECK - Stated complaint Stated Complaint: SWELLING LET FACE - Chief complaint Chief Complaint: Wound - Histroy obtained from History obtained from: Patient - Additional information Additional information: 31-year-old gentleman with severe eczema has had a several day history of a painful lesion on the left cheek. No fevers or general illness. The lesion has spread redness and swelling towards the left eye. No history of MRSA. Review of Systems Constitutional: reports: Reviewed and negative Eyes: reports: Reviewed and negative Ears: reports: Reviewed and negative Nose: reports: Reviewed and negative Throat: reports: Reviewed and negative Cardiac: reports: Reviewed and negative PD PAST MEDICAL HISTORY - Past Medical History Cardiovascular: None Respiratory: None Neuro: None Endocrine/Autoimmune: None GI: None : None HEENT: None Psych: Anxiety, ADD/ADHD, Post traumatic stress disorder Musculoskeletal: Chronic back pain Derm: Eczema - Past Surgical History Past Surgical History: No - Present Medications Home Medications: Ambulatory Orders Medication Instructions Recorded Confirmed clindamycin HCL [Cleocin HCl] 300 mg PO QID #28 cap 03/06/21 - Allergies Allergies/Adverse Reactions: Allergies Allergy/AdvReac Type Severity Reaction Status Date / Time cucumbers Allergy Unknown Uncoded 03/06/21 12:06 pickles Allergy Unknown Uncoded 03/06/21 12:06 - Social History Does the pt smoke?: Yes Smoking Status: Current every day smoker Does the pt drink ETOH?: Yes Does the pt have substance abuse?: Yes - Immunizations Immunizations are current?: No - POLST Patient has POLST: No PD ED PE NORMAL - Vitals Vital signs reviewed: Yes - General General: Alert and oriented X 3, No acute distress - HEENT HEENT: PERRL, EOMI, Other (Is a pointed abscess over the lateral left infraorbital rim with surrounding cellulitis and very mild infraorbital edema.) - Derm Derm: Other (He has terrible eczema on extremities) - Neuro Neuro: Alert and oriented X 3, Normal speech Results - Vitals Vitals: Vital Signs - 24 hr 03/06/21 12:07 Temperature 36.5 C Heart Rate 89 Respiratory 18 Rate Blood Pressure 130/93 H O2 Saturation 98 Oxygen O2 Source Room air Procedures - Abscess I&D (location) L face abscess Preparation: Alcohol, Lidocaine 1% Incision: Incised with scalpel, Purulent drainage, Loculations broken, Culture obtained Other: Antibiotic prescribed Departure - Departure Disposition: Home, Self Care Clinical Impression: Cellulitis of face, Abscess Condition: Good Record reviewed to determine appropriate education?: Yes Instructions: ED Cellulitis Facial Prescriptions: clindamycin HCL [Cleocin HCl] 300 mg PO QID #28 cap Comments: Wound culture is pending, plan to return Saturday for reevaluation and culture reviewed. Sooner if you worsen or develop fevers.
[2021-03-06 14:04] VITALS: BP 138/86
== END 2021-03-06 14:04 | disposition home or self-care (01) ==
LOC: ED 11:32
DX: L02.01 Cutaneous abscess of face (principal); L03.211 Cellulitis of face; L30.9 Dermatitis, unspecified; F17.200 Nicotine dependence, unspecified, uncomplicated
CPT/HCPCS: 10060; 87070; 87181; 87205; 99283; A9270

== ENCOUNTER 2022-10-30 10:33 | Outpatient (CLI) | payer MEDICAID ==
--- NOTE | 2022-10-31 09:07 | XRAY Report ---
PROCEDURE: Ankle 3 View LT INDICATIONS: ANKLE PX TECHNIQUE: 3 views of the ankle were acquired. COMPARISON: None. FINDINGS: Bones: No fractures or dislocations. Ankle mortise is normally aligned. There is a osseous density overlapping the anterior process of calcaneus. No suspicious bony lesions. Mild degenerative joint di sease at the talonavicular joint. Soft tissues: No tibiotalar joint effusion. Achilles tendon appears normal. IMPRESSION: 1. Mild osteoarthritic changes. If clinical symptoms persist or there is clinical suspicion for inter nal derangement, consider advanced imaging such as MRI for further evaluation. 2. An osseous density overlapping the anterior process of calcaneus, which could be related to old in jury or related to an congenital anomaly. If clinical symptoms persist or there is clinical suspicion for internal derangement, consider advanced imaging such as MRI or CT for further evaluation. Reviewed by: Troy Landers MD on 10/31/2022 9:06 AM PDT Approved by: Troy Landers MD on 10/31/2022 9:06 AM PDT Station ID: [id number]
== END 2022-10-30 10:34 | disposition home or self-care (01) ==
LOC: DI 10:33
PROVIDERS: ATTEND Physician Assistant
DX: M19.072 Primary osteoarthritis, left ankle and foot (principal)

== ENCOUNTER 2022-10-31 09:29 | Outpatient (CLI) | payer MEDICAID ==
[2022-10-31 09:45] LABS: BASOPHILS # (AUTO) 0.1 10^3/uL (0.0-0.1); BASOPHILS % (AUTO) 0.7 %; EOSINOPHILS # (AUTO) 1.1 10^3/uL (0.0-0.7); HCT - HEMATOCRIT 41.8 % (42.0-52.0); LYMPHOCYTES # (AUTO) 2.1 10^3/uL (1.5-3.5); LYMPHOCYTES % (AUTO) 23.5 %; MEAN CORPUSCULAR HGB CONC 33.5 g/dL (32.0-36.0); MEAN CORPUSCULAR VOLUME 89.7 fL (80.0-94.0); MEAN PLATELET VOLUME 9.7 fL (7.4-11.4); MONOCYTES # (AUTO) 0.7 10^3/uL (0.0-1.0); MONOCYTES % (AUTO) 8.1 %; NEUTROPHILS % (AUTO) 55.1 %; PLT - PLATELET COUNT 262 10^3/uL (130-450); RED BLOOD COUNT 4.66 10^6/uL (4.70-6.10); RED CELL DISTRIBUTION WIDTH 12.5 % (12.0-15.0)
[2022-10-31 09:47] LABS: SLIDE REVIEW? Indicated
[2022-10-31 10:00] LABS: ALBUMIN/GLOBULIN RATIO 1.4 (1.0-2.2); ALKALINE PHOSPHATASE 60 IU/L (42-121); ALT ALANINE AMINOTRANSFERASE 22 IU/L (10-60); AST ASPARTATE AMINOTRANSFERASE 16 IU/L (10-42); BILIRUBIN,TOTAL 0.3 mg/dL (0.2-1.0); BUN - BLOOD UREA NITROGEN 15 mg/dL (6-20); CALCIUM 9.1 mg/dL (8.5-10.3); CARBON DIOXIDE - CO2 30 mmol/L (21-32); CHLORIDE 105 mmol/L (101-111); CHOL/HDL RATIO 4.6 (<5.0); CHOLESTEROL 170 mg/dL; CREATININE 0.8 mg/dL (0.6-1.3); GFR - MDRD 111 (>89); GLUCOSE 93 mg/dL (74-104); HDL CHOLESTEROL 37 mg/dL; LDL CHOLESTEROL,CALCULATED 103 mg/dL; LDL/HDL RATIO 2.8 (<3.6); POTASSIUM 4.2 mmol/L (3.5-4.5); SODIUM 139 mmol/L (135-145); TOTAL PROTEIN 6.8 g/dL (6.4-8.9); TRIGLYCERIDES 148 mg/dL (48-352); VLDL CHOLESTEROL 30 mg/dL
[2022-10-31 10:16] LABS: THYROID STIMULATING HORMONE 1.48 uIU/mL (0.34-5.60)
[2022-10-31 10:22] LABS: DIFFERENTIAL COMMENT MANUAL=AUTO DIFF; PLATELET ESTIMATE, MANUAL NORMAL (130-450,000) (NORMAL); PLATELET MORPHOLOGY NORMAL APPEARANCE (NORMAL); RBC MORPHOLOGY (MULTIPLE) NORMAL APPEARANCE (NORMAL); WBC MORPHOLOGY (MULTIPLE) NORMAL APPEARANCE (NORMAL)
[2022-10-31 12:39] LABS: ESTIMATED AVERAGE GLUCOSE 111 mg/dL (70-100); HEMOGLOBIN A1c% 5.5 % (4.27-6.07)
== END 2022-10-31 09:30 | disposition home or self-care (01) ==
LOC: LAB 09:29
PROVIDERS: ATTEND Physician Assistant
DX: R73.01 Impaired fasting glucose (principal); Z13.9 Encounter for screening, unspecified
CPT/HCPCS: 36415; 80053; 80061; 83036; 83721; 84443; 85025

== ENCOUNTER 2022-11-24 00:12 | Outpatient (CLI) | payer MEDICAID | END 2022-11-24 23:59 | disposition critical access hospital (66) | LOC: EMS 00:12 | DX: R11.10 Vomiting, unspecified (principal); R09.89 Other specified symptoms and signs involving the circulatory and respiratory systems | CPT/HCPCS: A0425; A0429 ==

== ENCOUNTER 2022-11-24 00:31 | Emergency (ER) | payer MEDICAID ==
[2022-11-24] MEDS ORDERED: FAMOTIDINE 20 MG/2 ML VIAL IVP STA (01:05)
[2022-11-24] MEDS ORDERED: oxyCODONE 5 MG TABLET PO STA (01:05)
--- NOTE | 2022-11-24 01:06 | ED Physician Documentation ---
History of Present Illness - Stated complaint Stated Complaint: N/V, FB OBSTRUCTION - Chief complaint Chief Complaint: Abd Pain - History obtained from History obtained from: Patient - Additonal information Additional information: 32yM with allergy to cucumber p/w throat tightening and pain sensation X 2 h [employer]. he had spaghetti dinner abour an hour prior to onset of symptoms. states it feels like something is stuck in his throat. he also states it's possible he had exposure to cucumber or pickles but his usual reaction is worsening of his eczema, not throat tightening. endorses dizziness, nausea. no chest pain, soa, wheezing or itching. PD PAST MEDICAL HISTORY - Past Medical History Cardiovascular: None Respiratory: None Neuro: None Endocrine/Autoimmune: None GI: None : None HEENT: None Psych: Anxiety, ADD/ADHD, Post traumatic stress disorder Musculoskeletal: Chronic back pain Derm: Eczema - Past Surgical History Past Surgical History: No - Present Medications Home Medications: Ambulatory Orders Medication Instructions Recorded Confirmed Ketorolac [Toradol] 10 mg PO Q6H PRN #15 tablet 11/24/22 - Allergies Allergies/Adverse Reactions: Allergies Allergy/AdvReac Type Severity Reaction Status Date / Time cucumbers Allergy Unknown Uncoded 11/24/22 00:44 pickles Allergy Unknown Uncoded 11/24/22 00:44 - Social History Does the pt smoke?: Yes Smoking Status: Current every day smoker Does the pt drink ETOH?: Yes Does the pt have substance abuse?: Yes - Immunizations Immunizations are current?: No - POLST Patient has POLST: No PD ED PE NORMAL - Vitals Vital signs reviewed: Yes - General General: Alert and oriented X 3, No acute distress, Well developed/nourished, Other (anxious appearing) - HEENT HEENT: Atraumatic, PERRL, EOMI, Moist mucous membranes, Pharynx benign - Neck Neck: Supple, no meningeal sign, No adenopathy, Thyroid normal, Other (normal upper airway breath sounds) - Cardiac Cardiac: RRR - Respiratory Respiratory: No respiratory distress, Clear bilaterally - Neuro Neuro: Alert and oriented X 3 Results - Vitals Vitals: Vital Signs - 24 hr 11/24/22 11/24/22 11/24/22 00:32 02:02 02:33 Temperature 36.5 C Heart Rate 80 107 H 84 Respiratory 14 22 15 Rate Blood Pressure 122/107 H 130/75 113/81 H O2 Saturation 95 98 98 11/24/22 11/24/22 11/24/22 03:12 04:04 05:04 Temperature Heart Rate 78 71 94 Respiratory 15 20 17 Rate Blood Pressure 121/93 H 110/61 108/67 O2 Saturation 95 96 98 Oxygen O2 Source Room air - Labs Labs: Laboratory Tests 11/24/22 11/24/22 00:55 00:55 WBC 17.1 H RBC 4.95 Hgb 14.9 Hct 44.3 MCV 89.5 MCH 30.1 MCHC 33.6 RDW 12.6 Plt Count 327 MPV 10.4 Neut # (Auto) 12.1 H Lymph # (Auto) 2.5 [place] # (Auto) 1.2 H Eos # (Auto) 1.1 H Baso # (Auto) 0.1 Absolute Nucleated RBC 0.00 Nucleated RBC % 0.0 Sodium 137 Potassium 4.1 Chloride 101 Carbon Dioxide 29 Anion Gap 7.0 BUN 16 Creatinine 1.0 Estimated GFR (MDRD) 86 L Glucose 103 Calcium 9.7 Total Bilirubin 0.3 AST 21 ALT 24 Alkaline Phosphatase 70 Total Protein 7.6 Albumin 4.3 Globulin 3.3 Albumin/Globulin Ratio 1.3 Lipase 35 Ethyl Alcohol < 10.0 PD Medical Decision Making - ED course ED course: 32yM presents with throat tightness, foreign body sensation, lightheadedness and nausea starting suddenly 2 h [employer]. patient endorses alcohol use as well. He is well appearing albeit retching repeatedly into emesis bag and complaining of pain. Oral oxycodone attempted but patient declined. IV morphine provided as well as benadryl and decadron in event this is an atypical allergic reaction. We also will attempt IV glucagon, pop rocks, and drinking a soda beverage rapidly in case this is caused by a foreign food bolus. Patient tolerated the glucagon and soda beverage and slept a couple hours. We did not end up giving the benadryl/decadron given this does not appear to be an allergic reaction. On waking he states he still has throat pain. IV toradol provided with improvement. Advised outpatient f/u with pcp. Return precautions given. Departure - Departure Disposition: 01 Home, Self Care Clinical Impression: Throat pain, Vomiting Condition: Stable Instructions: ED Nausea Vomiting Prescriptions: Ketorolac [Toradol] 10 mg PO Q6H PRN #15 tablet PRN Reason: Pain Comments: You were seen in the ED for vomiting and throat pain. Please follow up with your primary care provider. If this problem persists you may need referral to ENT (research phlebotomist). Return to the ED for new or worsening symptoms or other concerns. Forms: PCP List
[2022-11-24] MEDS ORDERED: SODIUM CHLORIDE 0.9% 1,000 ML IV STA (01:47)
[2022-11-24] MEDS ORDERED: MORPHINE 2 MG/ML CARPUJECT IVP STA (01:48)
[2022-11-24] MEDS ORDERED: ONDANSETRON 4 MG/2 ML VIAL IVP STA (01:49)
[2022-11-24] MEDS ORDERED: GLUCAGON 1 MG/ML VIAL IVP STA (02:03)
[2022-11-24] MEDS ORDERED: diphenhydrAMINE INJ 50 MG/ML VIAL IVP STA (02:04)
[2022-11-24] MEDS ORDERED: DEXAMETHASONE 10 MG/ML VIAL IVP STA (02:04)
[2022-11-24 03:03] LABS: BASOPHILS # (AUTO) 0.1 10^3/uL (0.0-0.1); BASOPHILS % (AUTO) 0.8 %; EOSINOPHILS # (AUTO) 1.1 10^3/uL (0.0-0.7); EOSINOPHILS % (AUTO) 6.3 %; HCT - HEMATOCRIT 44.3 % (42.0-52.0); HGB - HEMOGLOBIN 14.9 g/dL (14.0-18.0); LYMPHOCYTES # (AUTO) 2.5 10^3/uL (1.5-3.5); LYMPHOCYTES % (AUTO) 14.4 %; MEAN CORPUSCULAR HEMOGLOBIN 30.1 pg (27.0-31.0); MEAN CORPUSCULAR HGB CONC 33.6 g/dL (32.0-36.0); MEAN CORPUSCULAR VOLUME 89.5 fL (80.0-94.0); MEAN PLATELET VOLUME 10.4 fL (7.4-11.4); MONOCYTES # (AUTO) 1.2 10^3/uL (0.0-1.0); NEUTROPHILS # (AUTO) 12.1 10^3/uL (1.5-6.6); PLT - PLATELET COUNT 327 10^3/uL (130-450); RED BLOOD COUNT 4.95 10^6/uL (4.70-6.10); RED CELL DISTRIBUTION WIDTH 12.6 % (12.0-15.0); WHITE BLOOD COUNT 17.1 x10^3/uL (4.8-10.8)
[2022-11-24 03:13] LABS: ALBUMIN 4.3 g/dL (3.2-5.5); ALBUMIN/GLOBULIN RATIO 1.3 (1.0-2.2); ALKALINE PHOSPHATASE 70 IU/L (42-121); ALT ALANINE AMINOTRANSFERASE 24 IU/L (10-60); AST ASPARTATE AMINOTRANSFERASE 21 IU/L (10-42); BILIRUBIN,TOTAL 0.3 mg/dL (0.2-1.0); BUN - BLOOD UREA NITROGEN 16 mg/dL (6-20); CALCIUM 9.7 mg/dL (8.5-10.3); CARBON DIOXIDE - CO2 29 mmol/L (21-32); CHLORIDE 101 mmol/L (101-111); ETOH - ETHANOL < 10.0 mg/dL; GFR - MDRD 86 (>89); GLUCOSE 103 mg/dL (74-104); LIPASE 35 U/L (11-82); POTASSIUM 4.1 mmol/L (3.5-4.5); SODIUM 137 mmol/L (135-145); TOTAL PROTEIN 7.6 g/dL (6.4-8.9)
[2022-11-24] MEDS ORDERED: KETOROLAC 15 MG/ML VIAL IVP STA (05:12)
[2022-11-24 06:05] VITALS: BP 115/82; O2SAT 99
== END 2022-11-24 05:55 | disposition home or self-care (01) ==
LOC: ED 00:31
DX: R07.0 Pain in throat (principal); R11.10 Vomiting, unspecified; F17.200 Nicotine dependence, unspecified, uncomplicated
CPT/HCPCS: 36415; 80053; 80320; 83690; 85025; 96374; 96375; 99284